=== PATIENT | female | born 1985 | race Asian ===

== ENCOUNTER 2018-11-23 18:04 | Emergency (ER) | payer MEDICAID ==
[~2018-11-23] VITALS: Ht 160 cm; Wt 65.3 kg
[2018-11-23 18:40] VITALS: BP 122/80
--- NOTE | 2018-11-23 18:40 | NUR ---
ED Nurse Note:pt. came with locked jaw after she yanned wide today, A/Ox4 c/o pain 01/04
--- NOTE | 2018-11-23 19:04 | NUR ---
HAND-OFF: Report given to Inez.
--- NOTE | 2018-11-23 19:06 | NUR ---
ED Nurse Note: report received from ABBY Arvizu. no acute distress noted at this time.
[2018-11-23] MEDS ORDERED: IBUPROFEN600 MG ORAL (19:15)
--- NOTE | 2018-11-23 19:16 | NUR ---
ED Nurse Note: pt was massaging her own cheek area and the jaw went back to its original position.
[2018-11-23 19:20] VITALS: BP 118/80
--- NOTE | 2018-11-23 19:20 | NUR ---
ER DISCHARGE NOTE: Patient is cleared to be discharged per ERMD, pt is aox4, on room air, with stable vital signs. pt was given dc and prescription instructions, pt was able to verbalize understanding, pt id band removed without complications. pt is able to ambulate with steady gait. pt took all belongings.
--- NOTE | 2018-11-25 14:50 | Emergency Room Report ---
History of Present Illness General Chief Complaint: Pain Source: Patient Present Illness HPI Patient is a 33 yo female who presented after increased jaw pain and difficulty with movement, inability to close her mouth.. Patient had prior history of dislocation during dental procedure Onset: acuteduring yawn timing:constant character:sharp location:jaw radiation:none intensity:moderate Modifying factors:worse with movement. Associated signs and symptoms: difficulty closing mouth Allergies: Coded Allergies: No Known Allergies (Unverified , 11/23/18) Patient History Past Medical History: see triage record Last Menstrual Period: 10/2018 Now: No Reviewed Nursing Documentation: PMH: Agreed; PSxH: Agreed Nursing Documentation-PMH Past Medical History: No History, Except For Hx Hypertension: Yes Review of Systems All Other Systems: negative except mentioned in HPI Physical Exam Vital Signs Date Time Temp Pulse Resp B/P (MAP) Pulse Ox O2 Delivery O2 Flow Rate FiO2 11/23/18 18:15 98.2 88 19 122/80 (94) 97 Room Air General Appearance: well appearing, no apparent distress, alert, GCS 15, non- toxic Head: normocephalic, atraumatic ENT: hearing grossly normal, normal voice, other - jaw fixed in open position. unable to move side to side. tmj out of alignment. Neck: normal inspection, full range of motion, supple Respiratory: lungs clear, no respiratory distress, speaking full sentences Gastrointestinal: normal inspection Musculoskeletal: normal inspection Neurologic: normal inspection, alert, oriented x3, normal gait Psychiatric: mood/affect normal Skin: no rash Medical Decision Making Diagnostic Impression: Primary Impression: Dislocation, jaw ER Course Patient presented for jaw pain. Differential diagnosis included but was not limited to dislocation, dystonic reaction, fracture, among others. Patient was able to self reduce her jaw. She was subsequently able to move her jaw normally. Patient has a benign exam and does not appear to require imaging studies at this time. Patient was advised to follow up with primary care physician for recheck and to return if worse. Last Vital Signs Date Time Temp Pulse Resp B/P (MAP) Pulse Ox O2 Delivery O2 Flow Rate FiO2 11/23/18 19:20 98.2 84 19 118/80 98 Room Air Status: improved Disposition: HOME, SELF-CARE Condition: Stable Scripts Ibuprofen* (MOTRIN*) 600 Mg Tablet 600 MG ORAL Q8H PRN for For Pain, #30 TAB 0 Refills Prov: Davion Vasquez MD 11/23/18 Referrals: NOT CHOSEN IPA/,REFERRING (PCP) Patient Instructions: Jaw Dislocation, [id number] Davion Vasquez MD Nov 25, 2018 14:50
== END 2018-11-23 19:20 | disposition home or self-care (01) ==
LOC: EMR 19:15
DX: S03.00XA Dislocation of jaw, unspecified side, initial encounter (principal); X58.XXXA Exposure to other specified factors, initial encounter; Y92.9 Unspecified place or not applicable; I10 Essential (primary) hypertension
CPT/HCPCS: 99282